=== PATIENT | female | born 1990 | race Caucasian/White ===

== ENCOUNTER 2024-08-31 12:46 | Emergency (ER) | payer OTHER, SELFPAY ==
[2024-08-31 12:49] VITALS: BP 166/100; PULSE 70; TEMP 36.6; O2SAT 100; BMI 34.3
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
== END 2024-08-31 13:53 | disposition home or self-care (01) ==
PROVIDERS: Emergency Provider Emergency Medicine
DX: Z04.1 Encounter for examination and observation following transport accident (principal); R51.9 Headache, unspecified
CPT/HCPCS: 99281

== ENCOUNTER 2025-01-14 19:12 | Emergency (ER) | payer BC, SELFPAY ==
[2025-01-14 19:25] VITALS: BP 170/100; PULSE 76; TEMP 36.7; O2SAT 100; BMI 34.3
--- OUTSIDE RECORDS SUMMARY | 2025-01-14 19:42 | XMS_ITS ---
Author Name Auto Generated Organization OHIP PROBLEMS No Problem Records Found PROCEDURES No Procedure Records Found RESULTS CBC WITH PLATELET NO DIFFERENTIAL Collected: 05/15/2024 10:18 AM Status: F Source: [facility] REPOSITORY Order Comment: CALL doctor L [id number] tel. [phone], RESULTS TO KELLEN HUANG CALL doctor [id number] tel. [phone], RESULTS TO KELLEN HUANG TYPE CODE TESTS RESULT OUT OF RANGE REFERENCE UNITS LAB WBCIR WBC 8.7 4.8-10.8 K/uL LAB RBC RBC 4.55 4.20-5.40 M/uL LAB HGB Hemoglobin 13.8 12.0-16.0 g/dL LAB HCT Hematocrit 39.8 37.0-47.0 % LAB MCV MCV 87.5 79.4-94.8 fL LAB MCH MCH 30.3 27.0-31.3 pg LAB MCHC MCHC 34.7 33.0-37.0 % LAB RDW RDW 12.6 11.5-14.5 % LAB PLT Platelet Count 283 130-400 K/uL Performed By: #### CBCND ### # [facility] [address] [facility] [address] IRON BINDING CAP Collected: 05/15/2024 10:18 AM Stat us: F Source: [facility] REPOSITORY Order Comment: CALL doctor L [id number] tel. [phone], RESULTS TO KELLEN HUANG CALL doctor [id number] tel. [phone], RESULTS TO KELLEN HUANG TYPE CODE TESTS RESULT OUT OF RANGE REFERENCE UNITS LAB IIRON Iron 90 37-145 ug/dL LAB ITIBC Total Fe Binding Cap 315 250-450 ug/dL LAB IFEST % Fe Saturation 29 20-55 % LAB IUIBC Unbound Fe Bind Cap 225 112-347 ug/dL Result Comment: Performed at [facility], [address] [place] [id number] . COMPREHENSIVE METABOLIC PANEL Collected : 05/15/2024 10:18 AM Status: F Source: [facility] REPOSITORY Order Comment: CALL doctor L [id number] tel. [phone], RESULTS TO KELLEN SAL CALL doctor [id number] tel. [phone], RESULTS TO KELLEN SAL TYPE CODE TESTS RESULT OUT OF RANGE REFERENCE UNITS LAB NA Sodium 140 135-144 mEq/L LAB K Potassium 3.7 3.4-4.9 mEq/L LAB CL Chloride 105 95-107 mEq/L LAB CO2 CO2 24 20-31 mEq/L LAB AGAP Anion Gap 11 9-15 mEq/L LAB GLU Glucose 78 70-99 mg/dL LAB BUN BUN 8 6-20 mg/dL LAB CREA Creatinine 0.72 0.50-0.90 mg/dL LAB GFR GFR >90.0 >60 Result Comment: Pediatric ca lculator link https://www.kidney.org/professionals/kdoqi/gfr_calculatorped Effective Jul 16, 2022 These results are not intended for use in patients <18 years of age. eGFR results are calculated without a race factor using the 2020 CKD-EPI equation. Careful clinical correlation is recommended, particularly when comparing to results calculated using previous equations. The CKD-EPI equation is less accurate in patients with extremes of muscle mass, extra-renal metabolism of creatinine, excessive creatinine ingestion, or following therapy that affects renal tubular secretion. LAB CA Calcium 9.3 8.5-9.9 mg/dL LAB TP Total Protein 7.2 6.3-8.0 g/dL LAB ALB Albumin 4.5 3.5-4.6 g/dL LAB BILIT Bilirubin Total 0.9 High alert 0.2-0.7 mg/dL LAB ALP Alkaline Phosphatase 72 40-130 U/L LAB ALT ALT 22 0-33 U/L LAB AST AST 31 0-35 U/L LAB GLOB Globulin 2.7 2.3-3.5 g/dL Performed By: #### CMP #### [facility] [address] [place] [address] LIPID PANEL Collected: 05/15/2024 10:18 AM Status: F Source: [facility] REPOSITORY Order Comment: CALL doctor L [id number] tel. [phone], RESULTS TO KELLEN HUANG CALL doctor [id number] tel. [phone], RESULTS TO KELLEN HUANG TYPE CODE TESTS RESULT OUT OF RANGE REFERENCE UNITS LAB CHOL Cholesterol 178 0-199 mg/dL Result Comment: ATP III Chol esterol classification is Desirable. LAB TRIG Triglycerides 148 0-150 mg/dL Result Comment: ATP III Trig lycerides Classification is Normal. LAB HDL HDL Cholesterol 45 40-59 mg/dL Result Comment: ATP III HDL Cholesterol Classification is Desirable. Expected Values: Males: >55 = No Risk 35-55 = Moderate Risk <35 = High Risk Females: >65 = No Risk 45-65 = Moderate Risk <45 = High Risk NCEP Guidelines: Third Report February 2001 >59 = negative risk factor for CHD <40 = major risk factor for CHD LAB LDLC LDL Cholesterol (Calculated) 103 0-129 mg/dL Result Comment: ATP III LDL Classification is Near Optimal. Performed By: #### LIPID ### # [facility] [address] [facility] [address] VITAMIN D 25 OH Collected: 4 10:18 AM Status: F Source: [facility] REPOSITORY Order Comment: CALL doctor L [id number] tel. [phone], RESULTS TO KELLEN HUANG CALL doctor [id number] tel. [phone], RESULTS TO KELLEN HUANG TYPE CODE TESTS RESULT OUT OF RANGE REFERENCE UNITS LAB IVD25 Vitamin D 25 OH 51.5 30.0-100.0 ng/mL Result Comment: Reference Range: Vitamin D status Range Deficiency <20 ng/mL Mild Deficiency 20-30 ng/mL Sufficiency 30-100 ng/mL Toxicity >100 ng/mL Performed at [facility], [address] [place] [address] . INSULIN, FASTING Collected: 4 10:18 AM Status: F Source: [facility] REPOSITORY Order Comment: CALL doctor L 2725 tel. [phone], RESULTS TO KELLEN HUANG CALL doctor [id number] tel. [phone], RESULTS TO KELLEN HUANG TYPE CODE TESTS RESULT OUT OF RANGE REFERENCE UNITS LAB 7006C Insulin, Fasting 8 3-25 uIU/mL Result Comment: INTERPRETIVE INFORMATION: Insulin, Fasting This test reacts on a nearly equimolar basis with the analogs insulin aspart, insulin glargine, and insulin lispro. Insulin detemir exhibits approximately 50 percent cross-reactivity. Test reactivity with insulin glulisine is negligible (less than 3 percent). To convert to pmol/L, multiply uIU/mL by 6.0. Performed By: [employer] [address] [place] [address] Vibration Technician: Stephon Sheldon MD, PhD CLIA Number: [id number] TSH W/REFLEX Collected: 10:18 AM Status: F Source: [facility] REPOSITORY Order Comment: CALL doctor L 2725 tel. [phone], RESULTS TO KELLEN HUANG CALL doctor [id number] tel. [phone], RESULTS TO KELLEN HUANG TYPE CODE TESTS RESULT OUT OF RANGE REFERENCE UNITS LAB TSHR TSH w/Reflex 3.480 0.440-3.86 uIU/mL Result Comment: Free T4 will automatically reflex with a TSH result of <0.270 or >4.200 Performed By: #### TSHR #### [facility] [address] [facility] [address] B12/FOLATE PANEL Collected: 10:18 AM Status: F Source: [facility] REPOSITORY Order Comment: CALL doctor L 2725 tel. [phone], RESULTS TO KELLEN HUANG CALL doctor [id number] tel. [phone], RESULTS TO KELLEN BAUTISTAGary TYPE CODE TESTS RESULT OUT OF RANGE REFERENCE UNITS LAB IB12 Vitamin B12 730 433-4801 pg/mL LAB IFOL Folic Acid 4.6 Low 4.8-24.2 ng/mL Result Comment: Performed at [facility], [address] [place] [address] . HEMOGLOBIN A1C Collected: 10:18 AM Status: F Source: [facility] REPOSITORY Order Comment: CALL doctor L 2725 tel. [phone], RESULTS TO KELLEN HUANG CALL doctor [id number] tel. [phone], RESULTS TO KELLEN BAUTISTAGary TYPE CODE TESTS RESULT OUT OF RANGE REFERENCE UNITS LAB IPA1C Hemoglobin A1C 4.8 4.0-6.0 % LAB IEAG Estimated Ave Gluc 91 mg/dL Result Comment: The ADA and AACC recommend providing the estimated average glucose result to permit better patient understanding of their HBA1c result. Performed at [facility], [address] [place] [address] . ALLERGIES No Allergies Records Found ENCOUNTERS No Encounter Records Found PAYERS No Payer Records Found
== END 2025-01-14 20:37 | disposition left against medical advice (07) ==
LOC: ER 19:25
PROVIDERS: Emergency Provider Emergency Medicine
DX: Z53.21 Procedure and treatment not carried out due to patient leaving prior to being seen by health care provider (principal)